=== PATIENT | female | born 1995 | race Caucasian/White ===

== ENCOUNTER → 2017-10-12 10:16 | Outpatient (CLI) | payer OTHER, SELFPAY ==
[2017-10-12 15:39] LABS: Chlamydia Trachomatis by PCR Negative (Negative); Neisserai gonorrhoeae by PCR Negative (Negative); Probe Check PASS; Sample Adequacy Control PASS; Specimen Processing Control PASS
== END ==
PROVIDERS: Family Provider Pediatrics; PCP Pediatrics; Visit Provider Nurse Practitioner
DX: R39.9 Unspecified symptoms and signs involving the genitourinary system (principal)
CPT/HCPCS: 87086; 87088; 87186; 87491; 87591